=== PATIENT | male | born 1955 | race Caucasian/White ===

== ENCOUNTER 2020-04-17 07:51 | Observation (INO) ==
[~2020-04-17 07:51] MED LIST: EPHEDRINE SULFATE INJ ONE
[2020-04-17] MEDS: LR 1000 ML IV 1,000 ML IV ONE ×2 (08:01→08:45)
[2020-04-17] MEDS ORDERED: ANCEF 1 GRAM IV PREMIX* 2 G/100 ML BAG IV ONE (08:01)
[2020-04-17] MEDS ORDERED: NAROPIN 0.75% EPI ONE (08:12)
[2020-04-17] MEDS ORDERED: FENTANYL INJ 100 mcg ONE (08:12)
[2020-04-17] MEDS ORDERED: NS 1000 ML 1,000 ML ONE (08:28)
[2020-04-17 08:55] VITALS: BMI 36.5
[2020-04-17] MEDS ORDERED: MARCAINE 0.25% INJ ONE (09:51)
[2020-04-17] MEDS ORDERED: ULTANE GAS IN ONE (10:30)
[2020-04-17] MEDS ORDERED: DIPRIVAN VIAL ONE (10:30)
[2020-04-17] MEDS ORDERED: QUELICIN (OR ANECTINE) ONE (10:30)
[2020-04-17] MEDS ORDERED: NORCURON INJ 10 MG VIAL ONE (10:30)
[2020-04-17] MEDS ORDERED: ZOFRAN INJ 4 MG VIAL ONE (10:30)
[2020-04-17] MEDS ORDERED: XYLOCAINE 1 % (PLAIN) ONE (10:30)
[2020-04-17] MEDS ORDERED: VERSED ONE (10:30)
[2020-04-17] MEDS ORDERED: TORADOL 30 MG VIAL ONE (10:30)
[2020-04-17] MEDS ORDERED: VANCOMYCIN HCL ONE (11:00)
[2020-04-17] MEDS ORDERED: BENADRYL INJ 50 MG VIAL IVP PRN (13:12)
[2020-04-17] MEDS ORDERED: PHENERGAN INJ 25 MG IM PRN (13:12)
[2020-04-17] MEDS ORDERED: DILAUDID INJ IVP PRN (13:12)
[2020-04-17] MEDS ORDERED: ZOFRAN INJ 4 MG VIAL IVP PRN (13:12)
[2020-04-17] MEDS ORDERED: REGLAN INJ 10 MG VIAL IVP PRN (13:12)
[2020-04-17] MEDS ORDERED: NS IV SCH (14:00)
[2020-04-17] MEDS ORDERED: LOVENOX INJ 40 MG SYR SC ONE (14:41)
[2020-04-17] MEDS: LOVENOX INJ 40 MG SYR SC SCH (15:21)
[2020-04-17] MEDS: NS 1000 ML 1,000 ML IV SCH (15:22)
[2020-04-17] MEDS: DILAUDID INJ IVP PRN ×2 (19:24→23:47)
[2020-04-17] MEDS ORDERED: ANCEF VIAL 1 GRAM ONE (20:51)
[2020-04-17] MEDS ORDERED: NS 50 ML IV + SPIKE MINIBAG* 0 ML IV ONE (20:52)
[2020-04-17] MEDS ORDERED: NS 50 ML IV 50 ML IV ONE (20:55)
[2020-04-17] MEDS: ANCEF VIAL 1 GRAM IVP SCH (21:05)
[2020-04-18] MEDS: DILAUDID INJ IVP PRN ×2 (03:48→07:36)
[2020-04-18] MEDS: NS 1000 ML 1,000 ML IV SCH (03:57)
[2020-04-18] MEDS ORDERED: NS 50 ML IV 50 ML IV ONE (05:24)
[2020-04-18] MEDS: ANCEF VIAL 1 GRAM IVP SCH ×2 (05:50→14:08)
[2020-04-18] MEDS ORDERED: ROXICODONE TAB 5 MG PO PRN (08:35)
[2020-04-18] MEDS ORDERED: GLUCOPHAGE XR 24-HR PO SCH (09:00)
[2020-04-18] MEDS ORDERED: AMARYL TAB 4 MG PO SCH (09:00)
[2020-04-18] MEDS ORDERED: VORTIOXETINE 20 MG PO SCH (09:00)
[2020-04-18] MEDS ORDERED: LASIX PO SCH (09:00)
[2020-04-18] MEDS ORDERED: DOFETILIDE 500 MCG PO SCH ×2 (09:00→21:00)
[2020-04-18] MEDS ORDERED: NORVASC TAB 10 MG PO SCH (09:00)
[2020-04-18] MEDS ORDERED: COREG TAB 6.25 MG PO SCH (09:00)
[2020-04-18] MEDS ORDERED: LYRICA CAP 150 mg PO SCH (09:00)
[2020-04-18] MEDS ORDERED: LIPITOR TAB 40 MG PO SCH (09:00)
[2020-04-18] MEDS ORDERED: COZAAR PO SCH (09:00)
--- NOTE | 2020-04-18 09:14 | MD.NOTE ---
Provider Note Note Note: S: patient seen NAD. pain controlled pain mild 6/10. O: motor and sensory intact to toes. dressing CDI. no strikethrough. A: POD #1 Total ankle replacement right. P: will work with PT this am. NWB. will need to use walker due to Total shoulder replacement. plan for D/C to home today. will use oxycodone with his hydrocodone at home for pain control. ok to start back on eliquis. will follow up with me outpatient. no home dressing change needs.
[2020-04-18] MEDS ORDERED: TORADOL 30 MG VIAL IVP STA (09:17)
[2020-04-18] MEDS ORDERED: TORADOL 30 MG VIAL ONE (09:23)
[2020-04-18] MEDS ORDERED: DILAUDID INJ IVP STA (09:46)
[2020-04-18] MEDS ORDERED: MORPHINE SULFATE INJ 10 MG IM ONE ×2 (11:22→17:35)
[2020-04-18] MEDS: PATIENT'S HOME MEDICATION (Empagliflozin [Jardiance] 25 MG) PO SCH ×2 (11:32→11:52)
[2020-04-18] MEDS: LOVENOX INJ 40 MG SYR SC SCH (11:34)
[2020-04-18] MEDS ORDERED: MORPHINE SULFATE INJ 10 MG ONE ×2 (11:59→18:29)
[2020-04-18] MEDS ORDERED: NS 100 ML IV 100 ML IV ONE (14:06)
[2020-04-18 17:32] VITALS: BP 119/78
[2020-04-18] MEDS ORDERED: SNACK - Diabetic Appropriate PO SCH (20:00)
== END 2020-04-18 19:10 | disposition home or self-care (01) ==
LOC: EDSEX → SURG1 07:51 → MED/SURG 07:51
PROVIDERS: ADMIT Obstetrics & Gynecology Obstetrics; ATTEND Obstetrics & Gynecology Obstetrics
DX: E11.65 Type 2 diabetes mellitus with hyperglycemia; I25.10 Atherosclerotic heart disease of native coronary artery without angina pectoris; M19.071 Primary osteoarthritis, right ankle and foot; I10 Essential (primary) hypertension; G89.18 Other acute postprocedural pain